=== PATIENT | female | born 1970 | race Caucasian/White ===

== ENCOUNTER 2021-02-24 14:57 | Emergency (ER) | payer OTHER ==
[~2021-02-24] VITALS: Ht 149.9 cm; Wt 61.2 kg
--- NOTE | 2021-02-24 15:18 | NUR ---
BIBS FOR CHEST CONGESTION AND CHEST PRESSURE 2/10 X 2 WEEKS,AGGRAVATED BY DEEP INSPIRATION OR COUGHING. IN ROOM AIR AND OXYGEN SATURATION IN ROOM AIR IS AT 98%. RESPIRATION REGULAR AND UNLABORED. ATTACHED TO THE MONITOR.
[2021-02-24] MEDS ORDERED: AZIT250T PO (16:17)
--- NOTE | 2021-02-24 17:07 | NUR ---
Patient discharged to home in stable condition. Written and verbal after care instructions given. Patient verbalizes understanding of instruction.
[2021-02-24 17:08] VITALS: BP 128/74
== END 2021-02-24 17:09 | disposition home or self-care (01) ==
LOC: ER 14:59
DX: J40 Bronchitis, not specified as acute or chronic (principal); R94.31 Abnormal electrocardiogram [ECG] [EKG]
CPT/HCPCS: 71045-TC